=== PATIENT | female | born 1985 | race Caucasian/White ===

== ENCOUNTER 2018-06-03 11:22 | Day surgery (SDC) | payer MEDICARE, MEDICAID ==
[2018-06-02 12:55] VITALS: BMI 44.4
[2018-06-03] MEDS ORDERED: Midazolam HCl 2 mg/2 ml Vial ONE (13:17)
[2018-06-03] MEDS ORDERED: Lidocaine 1% PF 5 ML VIAL ONE (13:42)
[2018-06-03] MEDS ORDERED: PROPOFOL 200 MG/20 ML VIAL ONE (13:42)
--- NOTE | 2018-06-03 14:02 | OP ---
DATE OF PROCEDURE: 06/03/2018 SURGEON: Mark Anthony Pandey M.D. LEATHER FITTER SURGEON: None. PROCEDURE: Colonoscopy with biopsies. INDICATION: 1. Chronic diarrhea. 2. Family history of colon cancer. MEDICATIONS: See anesthesia record. FINDINGS: After discussion of the risks, benefits and alternatives of the procedure, informed consen t was obtained and witnessed. Pre-endoscopic cardiopulmonary examination was satisfactory. Timeout was performed before sedation was achieved. Sedation was achieved with anesthesia assistance in the endoscopy unit. A Pentax adult upper endoscope was prepared. Digital rectal exam was performed, whi ch was unremarkable. The colonoscope was inserted into the anus and passed forward to the cecum in t he usual fashion. The cecal base was identified by the appendiceal orifice as well as the ileocecal valve. The terminal ileum was intubated. The ileal mucosa had a mild diffusely erythematous appeara nce. There was no evidence of any erosions or ulcerations. There was minimal friability. Biopsies were obtained from the terminal ileum for histology. The colonoscope was then slowly withdrawn in a gradual and circumferential manner with careful examination of the entire colonic mucosa. The qualit y of the prep was good. The colonic mucosa appeared completely normal throughout. There was no evid ence of any mucosal abnormalities, polyps or mass lesions. I did obtain biopsies randomly from the r ight and left colon to rule out microscopic colitis. Retroflexion in the rectum was normal. The col onoscope was then completely withdrawn and the patient allowed to recover. The patient tolerated the procedure well. There were no immediate post-procedure complications. IMPRESSION: 1. Mild diffuse erythema in the terminal ileum. Biopsied. 2. Otherwise, normal colonoscopy. Random colon biopsies obtained from the right and left colon. RECOMMENDATIONS: 1. Follow up pathology on the terminal ileal and random colon biopsies. 2. Follow up in clinic with myself or Physician Ocular Pathologist in the next 2-3 weeks.
== END 2018-06-03 14:47 | disposition home or self-care (01) ==
LOC: SDC 11:22
PROVIDERS: ATTEND Internal Medicine
PROC: 0DBK8ZX Excision of Ascending Colon, Via Natural or Artificial Opening Endoscopic, Diagnostic (ICD-10-PCS; principal; 2018-06-03)
PROC: 0DBM8ZX Excision of Descending Colon, Via Natural or Artificial Opening Endoscopic, Diagnostic (ICD-10-PCS; 2018-06-03)
PROC: 0DBB4ZX Excision of Ileum, Percutaneous Endoscopic Approach, Diagnostic (ICD-10-PCS; 2018-06-03)
DX: K58.0 Irritable bowel syndrome with diarrhea (principal); F32.9 Major depressive disorder, single episode, unspecified; I10 Essential (primary) hypertension; K21.9 Gastro-esophageal reflux disease without esophagitis; E66.9 Obesity, unspecified; Z68.45 Body mass index [BMI] 70 or greater, adult; Z80.0 Family history of malignant neoplasm of digestive organs; Z79.899 Other long term (current) drug therapy; Z91.040 Latex allergy status; Z88.1 Allergy status to other antibiotic agents
CPT/HCPCS: 88305; J2001; J2250; J2704

== ENCOUNTER 2018-07-08 09:41 | Outpatient (CLI) | payer MEDICARE, MEDICAID | END 2018-07-08 09:42 | disposition home or self-care (01) | LOC: BICULT 09:41 | PROVIDERS: ATTEND Internal Medicine | DX: K52.9 Noninfective gastroenteritis and colitis, unspecified (principal); R94.5 Abnormal results of liver function studies | CPT/HCPCS: 76705 ==

== ENCOUNTER 2018-12-12 12:01 | Outpatient (CLI) | payer MEDICARE, MEDICAID ==
--- NOTE | 2018-12-12 13:12 | RAD ---
PA AND LATERAL CHEST: Date: 12/12/18 HISTORY: Cough for 1 week. COMPARISON: 10/01/17. FINDINGS: Heart size and mediastinum are within normal limits. Lungs are clear of infiltrates. There are some a rthritic changes of the spine. IMPRESSION: No active intrathoracic disease. POS: [facility]
== END 2018-12-12 12:02 | disposition home or self-care (01) ==
LOC: BICRAD 12:01
PROVIDERS: ATTEND Family Medicine
DX: J00 Acute nasopharyngitis [common cold] (principal); Z13.1 Encounter for screening for diabetes mellitus; I10 Essential (primary) hypertension; R73.9 Hyperglycemia, unspecified
CPT/HCPCS: 36415; 71046; 80053; 80061; 83036; 84439; 84443